=== PATIENT | male | born 1945 | race African-American/Black ===

== ENCOUNTER 2018-08-14 14:16 | Emergency (ER) | payer MEDICARE ==
[~2018-08-14] VITALS: Ht 165.1 cm; Wt 68.0 kg
[2018-08-14] MEDS ORDERED: TETRACAINE 0.5% OPHTH DROPS 4ML BOTHEYE ONE (15:45)
[2018-08-14 15:56] VITALS: BP 121/61
== END 2018-08-14 16:31 | disposition home or self-care (01) ==
LOC: ER 14:16
DX: H53.8 Other visual disturbances (principal); H26.9 Unspecified cataract; I10 Essential (primary) hypertension; E11.9 Type 2 diabetes mellitus without complications; Z86.73 Personal history of transient ischemic attack (TIA), and cerebral infarction without residual deficits
CPT/HCPCS: 99281; 99282

== ENCOUNTER 2019-04-25 23:59 | Emergency (ER) | payer MEDICARE ==
[~2019-04-25] VITALS: Ht 165.1 cm; Wt 69.0 kg
[2019-04-26 01:10] VITALS: BP 110/78
== END 2019-04-26 01:30 | disposition home or self-care (01) ==
LOC: ER 23:59
DX: R03.1 Nonspecific low blood-pressure reading (principal); E11.9 Type 2 diabetes mellitus without complications; I10 Essential (primary) hypertension; Z98.890 Other specified postprocedural states
CPT/HCPCS: 99281